=== PATIENT | female | born 1955 | race Caucasian/White ===

== ENCOUNTER 2017-04-18 08:15 | Outpatient (RCR) | payer BC ==
--- NOTE | 2017-04-02 13:11 | PT/OT/ST INITIAL EVALUATION ---
Department of Health and Human Services Form Approved Health Care Financing Administration OMB No. [id number] PLAN OF CARE/ASSESSMENT FOR OUTPATIENT REHABILITATION (Complete for Initial Claims Only) 1. PATIENT'S NAME Masha Vallecillo 2. ACC # [id number] 3. PSYCHIATRICN [id number] 4. PROVIDER NO. [id number] 5. TYPE: PT 6. PRIOR HOSPITALIZATION None 7. PRIMARY DX Stenosis and herniated nucleus pulposus, cervical, thoracic and lumbar spine. 8. SECONDARY DX General weakness and deconditioning 9. ONSET DATE 1 year ago 10. REFERRAL DATE 03/18/2017 11. SOC. DATE 03/29/2017 12. TIME OF EVAL 10:00 a.m. 12. REFERRING PHYSICIAN Dr. Rai Garcia 13. CHARGES/UNITS Evaluation for 30 minutes Therapeutic exercise 30 minutes 14. G CODES NA 15. PRIOR LEVEL OF FUNCTION; PERTINENT HISTORY (Prior therapy results, reason for referral.) S: Reason for referral: The patient was referred to physical therapy by Dr. Rai Garcia with the diagnosis of stenosis and herniated nucleus pulposus at cervical, thoracic and lumbar spine. The patient reports that she has progressively been getting worse over the last year and is now having difficulty walking and using her right hand. The patient is walking on her toes with her knees slightly flexed. She reports her balance is very unsteady and she is frequently catching her toe and walking. The patient states that she feels like her legs are really tired; however, they will not do what she wants them to do. She needs several rests with activity throughout the day. The patient states that she moves very slowly. The patient does report numbness at her feet for approximately the last 5 years. 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 Activity level: Describes activity living as low. Personal health rating: Rates overall health as good. Pain level: Current pain rating is 2/10. Diagnostic tests: Include MRI, spinal tap. Patient's Goal: The patient's goal for therapy is to work on walking normal and improving her balance. 16. INITIAL ASSESSMENT/SAFETY PRECAUTIONS/MEDICAL COMPLICATIONS (Level of function at start of care. Be specific, use objective measures, list problems.) O: APPEARANCE, OBSERVATION AND GAIT: The patient is a 62-year-old slender female. She ambulates into physical therapy with her knee slightly flexed upon her toes. Poor overall foot clearance with gait. PALPATION: No tenderness was noted with palpation. The patient did not complain of any soreness with gentle mobilization and manual stretching to the lumbar spine. No significant tightness noted through that region. RANGE OF MOTION/FLEXIBILITY: Lower cervical range of motion was normal limits. Shoulder range of motion was normal limits. Hamstring flexibility and single knee to chest were both normal limits. STRENGTH: Strength at upper extremities were 5/5 manual muscle test. Hip flexion 4/5 manual muscle test bilaterally, hip abduction right 5/5 manual muscle test, left 4+/5 manual muscle test, knee flexion right 5/5 manual muscle test, left 4+/5 manual muscle test. Knee extension right 5/5 manual muscle test, left 4+/5 manual muscle test. Hip internal rotation right 5/5 manual muscle test, left 4/5 manual muscle test. Ankle dorsiflexion right 4+/5 manual muscle test, left 4/5 manual muscle test. Inversion at her ankles was 4-/5 manual muscle test bilaterally. Eversion was 4-/5 manual muscle test bilaterally. [employer] strength on the right was 60 pounds, left was 40 pounds. Pinch strength right 12 pounds, left 10 pounds. SPECIAL TESTS: The patient had difficulty performing [id number] slides using her left lower extremity. The patient's joint position awarenes_ was intact at both lower extremities. TODAY'S TREATMENT: Included initial evaluation followed by therapeutic exercise. 17. INITIAL POC: (Specify procedures, modalities, short and usp goals) A: The patient presents to physical therapy with dramatic weakness in her lower extremities, trunk and core as compared to previous physical therapy in July. PROGNOSIS: The patient may benefit from general strengthening, balance and proprioception activities. SHORT TERM GOALS: 1. The patient to be compliant with home exercise program. 2. The patient to demonstrate improved steadiness and gait in 4 weeks. 3. The patient to demonstrate half a muscle grade improvement in lower extremity strength in 6 weeks. 4. The patient to report less need for rest with normal daily activities in 8 weeks. P: The patient will be seen 2 times a week over the next 8 weeks. Treatment to include manual therapy and modalities as needed. We will progress the patient with range of motion, flexibility, stabilization and light strengthening activities as tolerated. 18. FREQUENCY 2 times per week 19. DURATION 8 weeks 20. FUNCTIONAL LEVEL (End of claim period) 21. PHYSICIAN SIGNATURE ? ON FILE OR ENTER HERE: 22. DATE: I certify the need for these services furnished under this plan of care and if for partial hospitalization. 23. CERTIFICATION FROM THROUGH FORM [id number]
[~2017-04-18 08:15] MED LIST: ETAN25DI SQ; METO25TA60 PO
== END 2017-04-22 11:11 | disposition home or self-care (01) ==
LOC: PT 08:15
PROVIDERS: ATTEND Neurological Surgery
DX: M48.02 Spinal stenosis, cervical region (principal); M48.04 Spinal stenosis, thoracic region; M48.06 Spinal stenosis, lumbar region; M50.20 Other cervical disc displacement, unspecified cervical region; M51.26 Other intervertebral disc displacement, lumbar region; M51.24 Other intervertebral disc displacement, thoracic region